=== PATIENT | male | born 1990 | race African-American/Black ===

== ENCOUNTER 2021-09-12 08:47 | Emergency (ER) | payer BC | END 2021-09-12 11:00 | disposition home or self-care (01) | LOC: CSHERS 08:47 | DX: S93.401A Sprain of unspecified ligament of right ankle, initial encounter (principal); S93.601A Unspecified sprain of right foot, initial encounter; F17.210 Nicotine dependence, cigarettes, uncomplicated; W19.XXXA Unspecified fall, initial encounter ==